=== PATIENT | female | born 1980 | race Caucasian/White ===

== ENCOUNTER 2017-05-16 13:17 | Emergency (ER) | payer BC ==
[~2017-05-16] VITALS: Ht 162.6 cm; Wt 68.0 kg
[2017-05-16 13:30] VITALS: BP_SYST 119
--- NOTE | 2017-05-16 15:00 | NUR ---
Pt called, no answer. Pt not in waiting room.
--- NOTE | 2017-05-16 15:15 | NUR ---
Pt called, no answer. Pt not in waiting room.
--- NOTE | 2017-05-16 15:30 | NUR ---
Pt called, no answer. Pt not in waiting room. Pt LWBS
== END 2017-05-16 15:30 | disposition left against medical advice (07) ==
LOC: SED 13:17
DX: R10.30 Lower abdominal pain, unspecified (principal); Z53.21 Procedure and treatment not carried out due to patient leaving prior to being seen by health care provider